=== PATIENT | male | born 2000 | race Caucasian/White ===

== ENCOUNTER 2022-04-17 19:41 | Emergency (ER) | payer BC ==
[~2022-04-17] VITALS: Ht 182.9 cm; Wt 136.0 kg
[2022-04-18] MEDS ORDERED: IBUPROFEN 800MG TABLET PO ONE (00:15)
[2022-04-18] MEDS ORDERED: IBUP-2029 MT (00:58)
[2022-04-18 01:30] VITALS: BP 160/78
== END 2022-04-18 01:55 | disposition home or self-care (01) ==
LOC: ER 19:41
DX: S82.832A Other fracture of upper and lower end of left fibula, initial encounter for closed fracture (principal); X50.1XXA Overexertion from prolonged static or awkward postures, initial encounter; Y93.89 Activity, other specified; Y92.018 Other place in single-family (private) house as the place of occurrence of the external cause
CPT/HCPCS: 29515; 73610; 99283; Z7610